=== PATIENT | female | born 1965 | race Asian ===

== ENCOUNTER 2020-04-05 20:11 | Emergency (ER) | payer OTHER ==
[~2020-04-05] VITALS: Ht 154.9 cm; Wt 62.1 kg
[2020-04-05 20:20] VITALS: Ht 154.9 cm; Wt 62.1 kg
[2020-04-05 20:57] VITALS: BP 115/71
== END 2020-04-05 20:57 | disposition home or self-care (01) ==
LOC: ED 20:11
DX: J45.909 Unspecified asthma, uncomplicated (principal); E11.9 Type 2 diabetes mellitus without complications; Z76.0 Encounter for issue of repeat prescription